=== PATIENT | male | born 1960 | race Two or more races ===

== ENCOUNTER 2020-05-12 18:11 | Emergency (ER) | payer OTHER, MEDICAID ==
[~2020-05-12] VITALS: Ht 188 cm; Wt 99.8 kg
[2020-05-12 18:20] VITALS: BP_SYST 126
[2020-05-12 21:47] VITALS: BP_SYST 126
== END 2020-05-12 21:48 | disposition home or self-care (01) ==
LOC: SED 18:11
DX: R60.9 Edema, unspecified (principal); K21.9 Gastro-esophageal reflux disease without esophagitis
CPT/HCPCS: 99282; 99283